=== PATIENT | female | born 1965 | race Caucasian/White ===

== ENCOUNTER → 2016-08-19 | Outpatient (CLI) | payer BC ==
[~2016-08-19] MED LIST: CIPRO 500MG TA500 MG PO; ESTRACE 1MG1 MG/TAB PO
== END ==
LOC: MC.RAD 11:13
DX: Z12.31 Encounter for screening mammogram for malignant neoplasm of breast (principal)

== ENCOUNTER 2017-07-18 19:26 | Emergency (ER) | payer BC ==
[2017-07-18 19:30] VITALS: TEMP 97
[2017-07-18] MEDS ORDERED: PRINIVIL5 MG PO (20:01)
[2017-07-18 20:08] LABS: BASO # 0.1 (0.0-0.2); BASO % 1.2 % (0.0-2.0); EOS # 0.5 (0.0-0.7); EOS % 7.2 % (0-4.0); GRAN # 2.2 (1.4-6.5); GRAN % 32.2 % (42.2-75.2); HEMATOCRIT 38.5 % (37.0-47.0); HEMOGLOBIN 12.9 g/dl (12.5-16.0); LYMPH # 3.2 (1.2-3.4); LYMPH % 45.9 % (20.0-51.0); MEAN CELL VOLUME 97 fl (80.0-100.0); MEAN CORPUSCULAR HEMOGLOBIN 33 pg (27.0-31.0); MEAN CORPUSCULAR HGB CONC 34 g/dl (33.0-37.0); MEAN PLATELET VOLUME 9.9 fl (7.4-10.4); MONO # 0.9 (0.1-0.6); MONO % 13.4 % (1.7-9.3); PLATELET COUNT 243 K/mm3 (130-400); RED BLOOD COUNT 3.97 M/mm3 (4.10-5.30); REDCELL DISTRIBUTION WIDTH-CV 12.3 % (11.5-14.5)
[2017-07-18 20:21] LABS: ALANINE AMINOTRANSFERASE 37 U/L (9-52); ALBUMIN 4.1 gm/dL (3.5-5.0); ALKALINE PHOSPHATASE 69 U/L (50-136); ANION GAP 8 mmol/L (7-16); AST,SGOT 29 U/L (15-37); BILIRUBIN,TOTAL 0.3 mg/dL (0.0-1.0); BLOOD UREA NITROGEN 17 mg/dL (7-17); C-REACTIVE PROTEIN 0.6 mg/dL (0.0-0.9); CALCIUM 9.6 mg/dL (8.4-10.2); CARBON DIOXIDE 24 mmol/L (22-30); CHLORIDE 106 mmol/L (98-107); GLUCOSE 98 mg/dL (74-106); LIPASE 155 U/L (23-300); POTASSIUM 3.8 mmol/L (3.4-5.0); SODIUM 139 mmol/L (137-145); TOTAL PROTEIN 6.7 gm/dL (6.4-8.2)
[2017-07-18 20:36] LABS: TROPONIN-I < 0.012 ng/mL (0.000-0.034)
[2017-07-18] MEDS ORDERED: TOPROL XL 25MG25 MG PO (20:57)
[2017-07-18] MEDS ORDERED: PROTONIX 40MG T40 MG PO (20:57)
[2017-07-18 21:15] VITALS: BP 124/73; PULSE 64
== END 2017-07-18 21:20 | disposition home or self-care (01) ==
LOC: COL.ER 19:26
PROVIDERS: Emergency Medicine
DX: K21.9 Gastro-esophageal reflux disease without esophagitis (principal); I49.3 Ventricular premature depolarization; I10 Essential (primary) hypertension; F41.9 Anxiety disorder, unspecified

== ENCOUNTER 2017-08-27 12:23 | Day surgery (SDC) | payer BC ==
[2017-08-27] VITALS (12 sets, daily range): BP systolic 89–147; BP diastolic 53–79; PULSE 62–71; TEMP 97.5
[~2017-08-27] VITALS: Ht 175.3 cm; Wt 91.7 kg
[~2017-08-27 12:23] MED LIST changes: +PRINIVIL10 MG PO; +PROTONIX 40MG T40 MG PO; +TOPROL XL 25MG25 MG PO
[2017-08-27 12:36] LABS: HEMATOCRIT 38.5 % (37.0-47.0); HEMOGLOBIN 13.1 g/dl (12.5-16.0); MEAN CELL VOLUME 95 fl (80.0-100.0); MEAN CORPUSCULAR HEMOGLOBIN 32 pg (27.0-31.0); MEAN CORPUSCULAR HGB CONC 34 g/dl (33.0-37.0); MEAN PLATELET VOLUME 9.7 fl (7.4-10.4); PLATELET COUNT 248 K/mm3 (130-400); RED BLOOD COUNT 4.04 M/mm3 (4.10-5.30); REDCELL DISTRIBUTION WIDTH-CV 12.3 % (11.5-14.5)
[2017-08-27 12:43] LABS: INR 0.9 (0.8-3.0); PROTHROMBIN TIME 10.9 SECONDS (9.7-12.8)
[2017-08-27 12:45] LABS: CALCIUM 9.3 mg/dL (8.4-10.2); CREATININE, serum 0.73 mg/dL (0.52-1.25)
[2017-08-27] MEDS ORDERED: ESTRACE0.5 MG PO (13:14)
[2017-08-27] MEDS ORDERED: KLONOPIN 0.5MG0.5 MG PO (13:15)
[2017-08-27] MEDS ORDERED: PROTONIX 40MG T40 MG PO (13:17)
[2017-08-27] MEDS ORDERED: ASPIRIN 81M81 MG/TA2 PO (13:20)
== END 2017-08-27 18:35 | disposition home or self-care (01) ==
LOC: COL.CAR 12:23
PROVIDERS: Internal Medicine Interventional Cardiology
DX: R07.89 Other chest pain (principal); R94.39 Abnormal result of other cardiovascular function study; E78.5 Hyperlipidemia, unspecified; I10 Essential (primary) hypertension; I49.3 Ventricular premature depolarization; Z79.52 Long term (current) use of systemic steroids; Z82.49 Family history of ischemic heart disease and other diseases of the circulatory system; Z82.3 Family history of stroke
CPT/HCPCS: J2250; J2405; J3010; Q9967

== ENCOUNTER → 2017-10-16 | Outpatient (CLI) | payer BC ==
[~2017-10-16] MED LIST changes: +ASPIRIN 81M81 MG/TA2 PO; +ESTRACE0.5 MG PO; +KLONOPIN 0.5MG0.5 MG PO
== END ==
LOC: MC.RAD 07:53
DX: Z12.31 Encounter for screening mammogram for malignant neoplasm of breast (principal)

== ENCOUNTER → 2018-10-18 | Outpatient (CLI) | payer BC | LOC: MC.RAD 08:07 | DX: Z12.31 Encounter for screening mammogram for malignant neoplasm of breast (principal) ==